=== PATIENT | male | born 1985 | race Caucasian/White ===

== ENCOUNTER 2022-01-18 12:47 | Emergency (ER) | payer OTHER ==
[~2022-01-18] VITALS: Ht 180.3 cm; Wt 72.6 kg
[2022-01-18] MEDS ORDERED: IBUPROFEN600 MG PO (14:20)
== END 2022-01-18 14:27 | disposition home or self-care (01) ==
LOC: ER 12:53
DX: R60.9 Edema, unspecified (principal); S70.11XA Contusion of right thigh, initial encounter; M79.89 Other specified soft tissue disorders; V00.131A Fall from skateboard, initial encounter; Y93.51 Activity, roller skating (inline) and skateboarding; Y92.89 Other specified places as the place of occurrence of the external cause
CPT/HCPCS: 93971; 99282